=== PATIENT | female | born 1960 | race Asian ===

== ENCOUNTER 2020-07-04 18:45 | Emergency (ER) | payer MEDICAID ==
[~2020-07-04] VITALS: Ht 154.9 cm; Wt 69.4 kg
[2020-07-04 19:15] VITALS: BP 105/70; Ht 154.9 cm; Wt 69.4 kg
== END 2020-07-04 23:06 | disposition home or self-care (01) ==
LOC: ED 18:45
DX: S61.211D Laceration without foreign body of left index finger without damage to nail, subsequent encounter (principal); S61.211A Laceration without foreign body of left index finger without damage to nail, initial encounter

== ENCOUNTER 2020-07-05 10:27 | Emergency (ER) | payer MEDICAID ==
[~2020-07-05] VITALS: Ht 162.6 cm; Wt 67.1 kg
[2020-07-05 11:28] VITALS: BP 125/76; Ht 162.6 cm; Wt 67.1 kg
== END 2020-07-05 12:15 | disposition home or self-care (01) ==
LOC: ED 10:27
DX: S61.201A Unspecified open wound of left index finger without damage to nail, initial encounter (principal); W26.0XXA Contact with knife, initial encounter; Y93.89 Activity, other specified; Y92.89 Other specified places as the place of occurrence of the external cause; Y99.8 Other external cause status
CPT/HCPCS: 90715